=== PATIENT | female | born 1945 | race Caucasian/White ===

== ENCOUNTER 2024-10-09 12:48 | Emergency (ER) | payer MEDICARE, SELFPAY ==
[2024-10-09 12:49] VITALS: BP 135/88
[2024-10-09 13:16] LABS: % Basophils 0.6 % (0-2); % Immature Granulocytes 0.5 % (0-0.5); % Lymphocytes 12.5 % (20.5-51.1); % Monocytes 8.1 % (1.7-9.3); % Neutrophils 76.3 % (42.2-75.2); Absolute Eosinophils 0.1 10^3/uL (0-0.7); Absolute Lymphocytes 0.8 10^3/uL (1.2-3.4); Absolute Monocytes 0.5 10^3/uL (0.1-0.6); Absolute Neutrophils 5.1 10^3/uL (1.4-6.5); Hematocrit 33.8 % (37.0-47.0); Hemoglobin 10.9 g/dL (12.0-16.0); Mean Corp Hgb Conc. 32.2 g/dL (33.0-37.0); Mean Corpuscular Hgb 28.4 pg (27.0-31.0); Mean Platelet Volume 12.2 fL (7.4-10.4); Nucleated Red Blood Cells % 0 %; Platelet Count 149 10^3/uL (130-400); Red Blood Cell Count 3.84 10^6/uL (4.20-5.40); Red Cell Dist. Width 15.1 % (11.5-14.5); White Blood Cell Count 6.7 10^3/uL (4.8-10.8)
[2024-10-09 13:30] LABS: INR 1.19; PT 15.4 Sec (11.4-14.6)
--- NOTE | 2024-10-09 15:06 | ED.GENMED ---
History of Present Illness
General
Chief Complaint: Nose Bleed
Source: patient
Exam Limitations: none
Time Seen by Provider: 10/09/24 14:51
History of Present Illness
History of Present Illness:
78yoF with a history of atrial fibrillation on Eliquis presenting via EMS for evaluation of a nosebleed. The bleeding started spontaneously around 10am while was on the phone. She was unable to get the bleeding to stop so went to the ED. Urgent
care called EMS immediately because they did not have any equipment. EMS applied a nose clip and she feelt the bleeding has stopped. No prior history of epistaxis. Patient denies any trauma or nose picking.
Phy Exam
General Physical Exam
General Presentation: well appearing and no apparent distress
General Skin: warm and dry
General Habitus: normal
General Mental: alert
ENT Exam
ENT Exam: normocephalic and other (Clot noted to R nare in Kiesselbach's triangle with dried blood. No bleeding from L or in posterior oropharynx. )
Pulmonary Exam
Pulmonary Exam: no respiratory distress
Neurological Exam
Neurological Exam: alert
Odalis Coma Scale
Eye Opening: Spontaneous
Verbal Response: Oriented
Motor Response: Obeys Commands
GCS Total Score: 15
Skin Exam
Skin Exam: normal color and warm/dry
Psychiatric Exam
Psychiatric Exam: normal mood/affect
Course
Orders/Labs/Results
Orders:
Orders
10/09/24 13:00
Complete Blood Count/With Diff Urgent
PT/INR [Prothrombin Time] Urgent
10/09/24 15:06
Oxymetazoline HCl [Afrin Nasal Chandler] See Dose Instructions NASAL ONCE ONE
Abnormal Lab Results
10/09/24
13:00
RBC 3.84 L 10^6/uL
(4.20-5.40)
Hgb 10.9 L g/dL
(12.0-16.0)
Hct 33.8 L %
(37.0-47.0)
MCHC 32.2 L g/dL
(33.0-37.0)
RDW 15.1 H %
(11.5-14.5)
MPV 12.2 H fL
(7.4-10.4)
Absolute Lymphs (auto) 0.8 L 10^3/uL
(1.2-3.4)
Neutrophils % 76.3 H %
(42.2-75.2)
Lymphocytes % 12.5 L %
(20.5-51.1)
PT 15.4 H Sec
(11.4-14.6)
10/09/24 13:00
Vital Signs
Initial and Last Documented VS:
Initial Vital Signs
Temp Pulse Resp BP Pulse Ox
98.1 F 70 16 135/88 98
10/09/24 12:49 10/09/24 12:49 10/09/24 12:49 10/09/24 12:49 10/09/24 12:49
Last Documented Vital Signs
Temp Pulse Resp BP Pulse Ox
98.1 F 70 18 166/88 95
10/09/24 12:49 10/09/24 15:47 10/09/24 15:47 10/09/24 15:47 10/09/24 15:47
Procedures
Nosebleed
Drug treatment: other (Afrin)
Treatment: local pressure applied and Silver nitrate cautery
Post treatment bleeding: none- good control
MDM/Problems Addressed
Differential Diagnosis Includes:
78yoF here with R sided epistaxis that began this morning. Nose clip applied by EMS with improvement. There was a clot visualized to the R anterior nare. No blood in posterior oropharynx. She had a small amount of bleeding after suctioning.
Silver nitrate applied with hemostasis. Patient monitored for additional 30+ minutes without any recurrent bleeding. She is stable for discharge. Supportive care discussed and ED return precautions reviewed.
*Pulse Oximetry
SaO2: 98
Oxygen Mode of Delivery: Room air
Patient hypoxic: no (98%)
*Critical Care Note
Total Time (30-74mins, 75-104mins- exclusive of procedures): Not Applicable
ED Attending Note
-
Portions of this chart may have been created with voice recognition software.� Occasional wrong word or��sound alike� substitutions may have occurred due to the inherent limitations of voice recognition software.
Discharge Plan
Departure
Patient Disposition: Home (Routine Discharge)
Date of Disposition: 10/09/24
Time of Disposition: 16:23
Patient with high blood pressure during this ER visit?: Yes
Discharge Problem:
Right-sided epistaxis
Instructions: Nosebleeds (DC)
Referrals:
Emily Knutson MD [Family Provider, Internal Medicine]
Activity Restrictions/Additional Instructions:
Apply Vaseline at base of nose at nighttime and use humidifier.
If bleeding recurs, apply direct pressure for 20 minutes and return to the ED if bleeding does not stop.
Interventions
Interventions:
*Risk Screen - Suicide Last Done: 10/09/24 12:49
*General Assessment Last Done: 10/09/24 15:46
*Neglect/Abuse Screening Last Done: 10/09/24 12:49
*Nursing Disposition Last Done: 10/09/24 16:37
ED-EENT Assessment Last Done: 10/09/24 14:48
Discharge Date and Time
Discharge Date/Time: 10/09/24 16:38
Print Language: DIVEHI
[2024-10-09 15:47] VITALS: BP 166/88
[2024-10-09] MEDS: AFRIN NASAL SPRAY 2 SPRAYS NASAL (15:48)
== END 2024-10-09 16:38 | disposition home or self-care (01) ==
LOC: EMR 12:48
PROVIDERS: EMERGENCY PHYSICIAN Student in an Organized Health Care Education/Training Program; FAMILY PHYSICIAN Internal Medicine
DX: R04.0 Epistaxis (principal); I48.91 Unspecified atrial fibrillation; Z79.01 Long term (current) use of anticoagulants
CPT/HCPCS: 99283; 30901; 85025; 85610

== ENCOUNTER → 2025-01-30 13:46 | Outpatient (REF) | payer MEDICARE, OTHER, SELFPAY | LOC: HWRAD 13:46 | PROVIDERS: ATTENDING PHYSICIAN Specialist; FAMILY PHYSICIAN Internal Medicine | DX: M54.16 Radiculopathy, lumbar region (principal); M51.360 Other intervertebral disc degeneration, lumbar region with discogenic back pain only | CPT/HCPCS: 72131 ==